=== PATIENT | female | born 1965 | race African-American/Black ===

== ENCOUNTER 2018-10-02 19:59 | Inpatient (IN) | payer OTHER ==
[~2018-10-02] VITALS: Ht 180.3 cm; Wt 79.4 kg
--- NOTE | 2018-10-02 20:10 | NUR ---
Dr. Mahan at bedside for MSE.
[2018-10-02] MEDS ORDERED: FOLIC ACID PO (20:27)
[2018-10-02] MEDS ORDERED: CYCLOBENZAPRINE PO (20:27)
[2018-10-02] MEDS ORDERED: GABAPENTIN PO (20:27)
[2018-10-02] MEDS ORDERED: MOBIC PO (20:27)
--- NOTE | 2018-10-02 20:39 | NUR ---
Inserted medina catheter, pt tolerated procedure well, urine sample sent to lab.
--- NOTE | 2018-10-02 20:40 | NUR ---
Xray at bedside.
[2018-10-02 20:41] LABS: BASOPHILS # (AUTO) 0.1 K/uL (0.0-8.0); BASOPHILS % (AUTO) 0.8 % (0.0-2.0); HEMATOCRIT 48.2 % (31.2-41.9); HEMOGLOBIN 15.8 g/dL (10.9-14.3); LYMPHOCYTES # (AUTO) 0.6 K/uL (20.0-40.0); LYMPHOCYTES % (AUTO) 7.7 % (20.5-51.5); MEAN CORPUSCULAR HEMOGLOBIN 30.9 uug (24.7-32.8); MEAN CORPUSCULAR HGB CONC 33 g/dL (32.3-35.6); MEAN CORPUSCULAR VOLUME 94.5 fL (75.5-95.3); MONOCYTES # (AUTO) 0.7 K/uL (2.0-10.0); MONOCYTES % (AUTO) 8.2 % (0.0-11.0); NEUTROPHILS # (AUTO) 6.9 K/uL (1.8-8.9); NEUTROPHILS % (AUTO) 83.3 % (38.5-71.5); PLATELET COUNT (AUTO) 339 K/uL (179-408); WHITE BLOOD COUNT (AUTO) 8.3 K/uL (3.8-11.8)
[2018-10-02] MEDS ORDERED: IV NORMAL SALINE 1000 ML BAG IV ONE ×4 (20:45→23:45)
--- NOTE | 2018-10-02 20:45 | NUR ---
Son at bedside
[2018-10-02 20:51] LABS: *BILIRUBIN,URIN 3+ (NEGATIVE); *BLOOD, URINE 1+ (NEGATIVE); *CLARITY,URINE SLIGHTLY CLOUDY (CLEAR); *COLOR,URINE DARK YELLOW (YELLOW); *KETONES,URINE 2+ (NEGATIVE); LEUKOCYTE ESTERASE ,URINE NEGATIVE (NEGATIVE); NITRITE, URINE POSITIVE (NEGATIVE); UGLUCOSE NEGATIVE (NEGATIVE)
[2018-10-02 20:52] LABS: ETHANOL < 3 MG/DL (0-0)
[2018-10-02 20:57] LABS: BILIRUBIN,DIRECT 0.3 mg/dL (0.0-0.2); BILIRUBIN,TOTAL 1.2 mg/dL (0.2-1.0); CREATININE 1.8 mg/dL (0.6-1.3)
[2018-10-02 21:01] LABS: *AMPHETAMINE, URINE NEGATIVE (NEGATIVE); *BARBITURATE, URINE NEGATIVE (NEGATIVE); *CANNABINOID, URINE NEGATIVE (NEGATIVE); *COCCAINE, URINE NEGATIVE (NEGATIVE); *OPIATE, URINE NEGATIVE (NEGATIVE); *PHENCYCLIDINE SCREEN,URINE NEGATIVE (NEGATIVE)
[2018-10-02 21:03] LABS: POTASSIUM 2.6 mmol/L (3.5-5.1)
[2018-10-02 21:04] LABS: ACETAMINOPHEN < 2.0 ug/mL (10-30)
[2018-10-02 21:09] LABS: BACTERIA,URINE MODERATE /HPF (NONE SEEN); SQUAMOUS EPITHELIAL CELL,UR MODERATE /HPF (NONE SEEN); WBC,URINE 0-3 /HPF (0-3)
--- NOTE | 2018-10-02 21:09 | NUR ---
Pt out of ER for CT.
[2018-10-02 21:10] LABS: URINE AMORPHOUS URATE MODERATE /HPF
[2018-10-02] MEDS ORDERED: POTASSIUM CHLORIDE 50 ML IV SCH (21:15)
[2018-10-02] MEDS ORDERED: CEFTRIAXONE 2 G in IV DEXTROSE 5% 100 ML IV ONE (21:15)
--- NOTE | 2018-10-02 21:20 | NUR ---
Dr. Mahan on panel call with Dr. Lalit Restrepo. Patient accepted for admission to [facility]. Diagnosis: altered mental status, and hypokalemia.
[2018-10-02 21:21] LABS: THYROID STIMULATING HORMONE 3.807 mIU/mL (0.358-3.740)
[2018-10-02] MEDS ORDERED: POTASSIUM CHLORIDE 100 ML ONE (21:26)
[2018-10-02] MEDS ORDERED: CEFTRIAXONE 1 G VIAL ONE (21:26)
[2018-10-02] MEDS ORDERED: ACETAMINOPHEN 650 MG SUPP.RECT RC PRN (22:00)
[2018-10-02] MEDS ORDERED: ONDANSETRON 4 MG/2 ML VIAL IV PRN (22:00)
--- NOTE | 2018-10-02 22:20 | NUR ---
Report given to Myesha LARKIN TINO.
--- NOTE | 2018-10-02 22:45 | NUR ---
Pt downgraded to Tele per Dr. Lalit Christensen.
[2018-10-02 23:35] LABS: ABG BASE EXCESS -4.3 mmol/L; ABG HCO3 16.4 mmol/L; ABG PCO2 20.6 mmHg (35.0-45.0); ABG PH 7.519 (7.350-7.450); ABG PO2 111.6 mmHg (75.0-100.0); ABG SITE RIGHT RADIAL; ABG TOTAL HEMOGLOBIN 13.2 G/dL (12.0-16.0); COHb 0.8 % (0.5-1.5); MetHb 0.3 % (0.0-1.5); O2Hb 97.2 % (94.0-97.0); VENT MODE ROOM AIR
--- NOTE | 2018-10-03 02:45 | NUR ---
Received pt on tele unit, RM 305, Dx: AMS, HYPOKALEMIA, RENAL FAILURE. Pt under the care of DR DAVILA. Pt awake, alert and oriented x3 to name, and reason of admission. Discussed and reviewed plan of care with pt, pt guarded and passive but verbalizes understanding. Tele placed and noted to be ST with HR of 109. O2 sat 99% RA. Pt has no complaints of SOB, discomfort or severe headache. PIV 20 g AC intact and patent. Assessment completed. Safety precautions in place. Call light within reach. Will continue to monitor.
[2018-10-03 03:07] VITALS: BP 146/96
[2018-10-03] MEDS: IV D5 1/2 NS 1000 ML 1,000 ML IV PRN ×2 (03:37→16:38)
[2018-10-03 04:00] VITALS: BP 143/79
[2018-10-03 04:28] LABS: BASOPHILS % (AUTO) 0.7 % (0.0-2.0); HEMATOCRIT 40.2 % (31.2-41.9); HEMOGLOBIN 13.4 g/dL (10.9-14.3); LYMPHOCYTES # (AUTO) 0.9 K/uL (20.0-40.0); LYMPHOCYTES % (AUTO) 13.7 % (20.5-51.5); MEAN CORPUSCULAR HEMOGLOBIN 31.5 uug (24.7-32.8); MEAN CORPUSCULAR HGB CONC 33 g/dL (32.3-35.6); MEAN CORPUSCULAR VOLUME 94.7 fL (75.5-95.3); MONOCYTES # (AUTO) 0.8 K/uL (2.0-10.0); MONOCYTES % (AUTO) 11.8 % (0.0-11.0); NEUTROPHILS # (AUTO) 5.1 K/uL (1.8-8.9); NEUTROPHILS % (AUTO) 73.8 % (38.5-71.5); PLATELET COUNT (AUTO) 257 K/uL (179-408); RED BLOOD CELL COUNT(AUTO) 4.24 MIL/uL (3.63-4.92); WHITE BLOOD COUNT (AUTO) 6.9 K/uL (3.8-11.8)
[2018-10-03 04:37] LABS: CREATININE 1.3 mg/dL (0.6-1.3); MAGNESIUM 1.9 mg/dL (1.8-2.4); PHOSPHOROUS 3.2 mg/dL (2.5-4.9); POTASSIUM 2.9 mmol/L (3.5-5.1)
[2018-10-03] MEDS: ENOXAPARIN SODIUM 30 MG/0.3 ML DISP.SYRIN SQ SCH ×2 (04:48→05:00)
[2018-10-03 04:56] LABS: THYROID STIMULATING HORMONE 1.731 mIU/mL (0.358-3.740)
--- NOTE | 2018-10-03 05:04 | NUR ---
Pt refused Lovenox injection. Discussed risks and benefits of medication. Pt still expresses "she does not need medication." Continue to monitor.
--- NOTE | 2018-10-03 06:20 | NUR ---
Pt slept intermittently throughout the night. Pt had episodes of restlessness. Provided reorientation and redirection as needed. Pt kept clean and dry. NPO status observed. Safety precautions maintained. Will endorse accordingly to day shift nurse.
--- NOTE | 2018-10-03 07:10 | NUR ---
received patient alert and oriented, patient in bed with no sob noted atthis time, no c/o pain at this time. bed in low position, 2 side rails up, bed alarm on, will continue to monitor.
[2018-10-03] MEDS ORDERED: PANTOPRAZOLE SODIUM 40 MG VIAL IV SCH (09:00)
[2018-10-03 09:49] LABS: ETHANOL < 3 MG/DL (0-0)
[2018-10-03 09:52] LABS: ALANINE AMINOTRANSFERASE 33 U/L (14-59); ALKALINE PHOSPHATASE 47 U/L (50-136); ASPARTATE AMINOTRANSFERASE 51 U/L (15-37); BILIRUBIN,DIRECT 0.3 mg/dL (0.0-0.2); BILIRUBIN,TOTAL 0.8 mg/dL (0.2-1.0); TOTAL PROTEIN, SERUM 7.7 g/dL (6.4-8.2)
[2018-10-03] MEDS ORDERED: THIAMINE HCL INJ 100 MG in IV DEXTROSE 5% 50 ML IV SCH (11:00)
[2018-10-03] MEDS ORDERED: hydrALAZINE HCL 20 MG/1 ML VIAL IV PRN (11:00)
[2018-10-03 11:28] VITALS: BP 154/102
[2018-10-03] MEDS: POTASSIUM CHLORIDE 50 ML IV SCH ×4 (11:51→14:58)
[2018-10-03 16:00] VITALS: BP 114/79
--- NOTE | 2018-10-03 18:20 | NUR ---
PATIENT IN BED ALERT AND ORIENTED WITH CONFUSION.NO C/O PAIN NOTED AT THIS TIME, NO SOB NOTED AT THIS TIME, KOVACS CATHETER WAS INSERTED, IV INTACT ANS PATENT. SAFETY AND COMFORT PROVIDED AT ALL TIMES. KEPT CLEAN AT ALL TIMES. WILL CONTINUE TO MONITOR AND CONTINUE TREATMENT PLAN.
--- NOTE | 2018-10-03 19:00 | NUR ---
PATIENT ALERT BUT ALERTERED, HOB ELEVATED TELE MONITOR SINUS TACHY 113 TO 114, NO SOB NO CHEST PAIN NOTED. KOVACS CATH PATIENT DRAINING WITH YELLOW COLOR URINE IN MODERATE AMOUNT. CALL LIGHT WITHIN REACH.
[2018-10-03 20:00] VITALS: BP 99/70
[2018-10-03] MEDS ORDERED: CEFTRIAXONE 1 G in IV DEXTROSE 5% 50 ML IV SCH (21:00)
--- NOTE | 2018-10-03 21:47 | NUR ---
MAILE FROM [facility] CALL US AND REPORTED THAT [facility] HAS BED AVAILABLE FOR THE PATIENT. CALL [facility] SPOKE TO NIKKY LARKIN AND GAVE REPORT. PATIENT DISCHARGE TOOK ALL BELONGINGS, PICKED UP BY AMBULANCE IN FAIR CONDITION.
[2018-10-04] MEDS ORDERED: FOLIC ACID 1 MG TABLET PO SCH (09:00)
== END 2018-10-03 21:45 | disposition short-term general hospital (02) | DRG 682 ==
LOC: ER 19:59 → TELE3 10-03 02:22
PROVIDERS: ATTEND Nurse Practitioner Acute Care
DX: N17.0 Acute kidney failure with tubular necrosis (principal); G93.41 Metabolic encephalopathy; N30.00 Acute cystitis without hematuria; E87.0 Hyperosmolality and hypernatremia; E87.2 Acidosis; F10.988 Alcohol use, unspecified with other alcohol-induced disorder; E87.6 Hypokalemia; E83.52 Hypercalcemia; E86.0 Dehydration; R41.82 Altered mental status, unspecified; D75.1 Secondary polycythemia; D25.9 Leiomyoma of uterus, unspecified; R74.0 Nonspecific elevation of levels of transaminase and lactic acid dehydrogenase [LDH]; K80.20 Calculus of gallbladder without cholecystitis without obstruction; K57.30 Diverticulosis of large intestine without perforation or abscess without bleeding; H55.00 Unspecified nystagmus; Y90.0 Blood alcohol level of less than 20 mg/100 ml
CPT/HCPCS: 36415; 36600; 70030-TC; 70450; 71045; 76700; 80307; 83605; 83735; 84100; 84443; 85025; 87040; 87086; 93005; A4663; C1758; C9113; G0378; G0480; G0480-TC; J0360; J0696; J1650; J3411; J3480; J3490; J7030; J7040; J7050; J7060